=== PATIENT | female | born 1960 | race Caucasian/White ===

== ENCOUNTER 2019-11-27 18:29 | Inpatient (IN) ==
--- NOTE | 2019-11-27 21:06 | CT ---
HISTORYhepatic encephalopathy, ams[Altered mental status]Noncontrast head CT examination.Comparison: [None].Technique:Multiple axial images of the brain were obtained from the skull base to the vertex without administration of IV contrast.Findings: There is moderate sulcal and cisternal prominence as well as atherosclerotic change in the proximal intracranial carotid and vertebral arteries, which is not out of proportion to the patient's stated age. There is diffuse CT density alteration seen in the periventricular white matter of the high and mid-convexity, which is likely in the setting of small vessel disease and not out of proportion to the patient's stated age. There is no pathologic ventricular dilatation or CT imaging evidence for hydrocephalus or herniation syndrome. No midline shift is evident. No acute intraparenchymal hemorrhage or mass can be identified. No extra-axial fluid collections are seen. No alteration in the attenuation of the brain parenchyma can be identified to suggest acute or subacute ischemic change. However, if clinical symptoms are concerning for an acute CVA, then follow-up MRI with DWI sequencing is recommended. The extracranial structures are unremarkable. The sinuses and mastoids are relatively clear.IMPRESSION:1. [No acute intracranial process, mass, or bleed identified].2. [Age-appropriate intra-cranial changes of advancing age].Electronically signed by: BI AGUILAR III (Nov 27, 2019 21:05:00)
--- NOTE | 2019-11-27 21:47 | RAD ---
Chest PA and lateralIndication: COPDCOMPARISONNone availableFINDINGSThere is no pneumothorax or effusion. Heart size is prominent. Lungs are hyperinflated. No dense consolidation seen.IMPRESSIONCardiomegaly and pulmonary hyperinflation of COPD without other acute chest processElectronically signed by: MARIA DHILLON (Nov 27, 2019 21:45:33)
[2019-11-27] MEDS ORDERED: HumuLIN R SUBCUT PRN (22:08)
[2019-11-27] MEDS: LITHIUM CARBONATE (PLAIN) PO SCH (23:30)
[2019-11-27] MEDS: COLACE CAP 100 MG PO SCH (23:30)
[2019-11-27] MEDS: CYMBALTA PO SCH (23:30)
[2019-11-27] MEDS: DILANTIN CAP 100 MG EXT REL PO SCH (23:30)
[2019-11-27] MEDS: ATIVAN TAB 0.5 MG PO SCH (23:30)
[2019-11-27] MEDS: XIFAXAN PO SCH (23:30)
[2019-11-27] MEDS: CHRONULAC PO SCH (23:30)
[2019-11-28] MEDS ORDERED: SEROquel TAB 25 mg PO ONE (00:10)
[2019-11-28] MEDS: CHRONULAC PO SCH ×4 (03:30→21:26)
[2019-11-28 05:11] VITALS: BMI 36.6
[2019-11-28] MEDS: NS 1000 ML 1,000 ML IV SCH ×3 (05:45→14:10)
[2019-11-28] MEDS ORDERED: GLUCOPHAGE ONE ×2 (06:00→16:52)
[2019-11-28] MEDS ORDERED: PHARMACY CONSULT LTC MEDICATIONS XX SCH (06:00)
[2019-11-28] MEDS: ATIVAN TAB 0.5 MG PO SCH ×3 (06:13→21:31)
[2019-11-28 06:41] LABS: BILIRUBIN,URINE NEGATIVE (NEGATIVE); BLOOD/HEMOGLOBIN,URINE NEGATIVE (NEGATIVE); GLUCOSE, URINE NEGATIVE (NEGATIVE); KETONES,URINE 1+ (NEGATIVE); LEUKOCYTE ESTERASE ,URINE NEGATIVE (NEGATIVE); NITRITES,URINE NEGATIVE (NEGATIVE); PH,URINE 6.5 (5.0 - 8.0); PROTEIN,URINE NEGATIVE (NEGATIVE); UROBILINOGEN,URINE 1+ (NORMAL)
[2019-11-28 06:46] LABS: BASOPHILS % (AUTO) 0.2 % (0.2-1.0); EOSINOPHILS # (AUTO) 0.1 x10^3/uL (0.0-0.2); EOSINOPHILS % (AUTO) 1.4 % (0.9-2.9); HEMATOCRIT 36.1 % (36.0-47.0); HEMOGLOBIN 12.1 g/dL (12.0-16.0); LYMPHOCYTES # (AUTO) 2.2 X10^3/uL (1.3-2.9); LYMPHOCYTES % (AUTO) 39.6 % (21.0-51.0); MEAN CORPUSCULAR HEMOGLOBIN 29.1 pg (27.0-34.0); MEAN CORPUSCULAR HGB CONC 33.5 g/dL (33.0-35.0); MEAN CORPUSCULAR VOLUME 86.9 fL (80.0-100.0); MEAN PLATELET VOLUME 9.9 fL (7.4-11.0); MONOCYTES # (AUTO) 0.5 x10^3/uL (0.3-0.8); MONOCYTES % (AUTO) 8.8 % (0.0-13.0); NEUTROPHILS # (AUTO) 2.8 x10^3/uL (2.2-4.8); PLATELET COUNT 111 X10^3/uL (150.0-450.0); RED BLOOD COUNT 4.15 X10^6/uL (3.5-5.4); RED CELL DISTRIBUTION WIDTH 15.1 % (11.6-16.5); WHITE BLOOD COUNT 5.5 X10^3/uL (3.6-10.0)
[2019-11-28] MEDS: GLUCOPHAGE PO SCH ×2 (06:46→17:06)
[2019-11-28 07:06] LABS: ALANINE AMINOTRANSFERASE 19 Units/L (12-78); ALBUMIN 3.3 g/dL (3.4-5.0); ALKALINE PHOSPHATASE 99 Units/L (46-116); ASPARTATE AMINO TRANSFERASE 24 Units/L (15-37); BLOOD UREA NITROGEN 8 mg/dL (7-18); CALCIUM 9.3 mg/dL (8.5-10.1); CARBON DIOXIDE 27.7 mmol/L (21-32); CHLORIDE 105 mmol/L (98-107); COR CA(FOR HYPOALB) 9.9 mg/dL (8.5-10.1); COR NA(FOR HYPERGLY) 142 mmol/L (136-145); CREATININE 0.77 mg/dL (0.55-1.02); SODIUM 141 mmol/L (136-145); TOTAL PROTEIN 7.6 g/dL (6.4-8.2); eGFR NON BLACK RACES > 60 (>60)
[2019-11-28 07:10] LABS: AMMONIA 39 umol/L (11-32)
[2019-11-28 07:28] LABS: APPEARANCE,URINE CLEAR (CLEAR); BACTERIA,URINE NEGATIVE /HPF (NEGATIVE); COLOR,URINE YELLOW (YELLOW); RBC,URINE 0-2 /HPF (0-3); SQUAMOUS EPITHELIAL CELL,UR RARE /HPF (NEGATIVE)
[2019-11-28 07:38] LABS: AMYLASE 23 Units/L (25-115); LIPASE 83 Units/L (73-393)
[2019-11-28] MEDS: VITAMIN D3 25 mcg (1,000 UNITS) PO SCH (08:47)
[2019-11-28] MEDS: XIFAXAN PO SCH ×2 (08:47→21:28)
[2019-11-28] MEDS: LITHIUM CARBONATE (PLAIN) PO SCH ×2 (08:48→21:29)
[2019-11-28] MEDS: TAB-A-VITE PO SCH (08:48)
[2019-11-28] MEDS: VITAMIN C PO SCH (08:48)
[2019-11-28] MEDS: CLARITIN PO SCH (08:48)
[2019-11-28] MEDS: SEROquel TAB 25 mg PO SCH ×2 (08:48→17:06)
[2019-11-28] MEDS: FOLIC ACID TAB 1 MG PO SCH (08:48)
[2019-11-28] MEDS: PROTONIX TAB 40 MG PO SCH (08:48)
[2019-11-28] MEDS: MIRALAX POWDER (1 DOSE 17 G) PO SCH (08:49)
[2019-11-28] MEDS: COLACE CAP 100 MG PO SCH ×2 (08:49→21:30)
[2019-11-28] MEDS: CYMBALTA PO SCH ×2 (08:51→21:40)
--- NOTE | 2019-11-28 10:18 | DR.H&P ---
H&P - History & Physical for Day of: H&P Date: 11/27/19 - Chief Complaint Chief Complaint: AMS - History of Present Illness History of Present Illness: PTIS 59 WF, DIRECT ADMIT FROM [facility] [place] WITH CO PER NURSING STAFF OF [facility]. PT HAD CT HEAD ON ADMISSION WO ACUTE FINDINGS. PT DENIES ANY FEVER OR CCC. PT HAS EXTENSIVE HX OF MENTAL ILLNESS. PLAN TO ADMIT, R/O ACUTE CVA, HYDRATE - Past Medical History Past Medical History: Anxiety, Arthritis, Depression, Diabetes, GERD, Hypertension, Schizophrenia - Past Surgical History Surgical History: Unknown - Social History Does patient currently use any type of tobacco product: Yes Have you used tobacco products in the last 12 months: Yes Type of Tobacco Use: Cigarettes How many years tobacco product used: 40 Alcohol Use: None Drug Use: None - Medications Home Medications: cephalexin Allergy (Verified 11/27/19 21:48) propoxyphene Allergy (Verified 11/27/19 21:48) streptomycin Allergy (Verified 11/27/19 21:48) Sulfa (Sulfonamide Antibiotics) Allergy (Verified 11/27/19 21:48) tetracycline Allergy (Verified 11/27/19 21:48) CONTINUE taking the following medications ascorbic acid (vitamin C) [Vitamin C] 500 mg PO DAILY 11/27/19 [History] cholecalciferol (vitamin D3) 2,000 unit PO DAILY 11/27/19 [History] dextran 70-hypromellose [GenTeal Tears Mild] 2 drp OPHTHALMIC (EYE) TID 11/27/19 [History] dextromethorphan HBr [Tussin Cough (DM only)] 30 mg PO Q6H PRN 11/27/19 [History] divalproex 875 mg PO BID 11/27/19 [History] docusate sodium 100 mg PO BID 11/27/19 [History] duloxetine 60 mg PO BID 11/27/19 [History] ergocalciferol (vitamin D2) 50,000 unit PO QWEEK 11/27/19 [History] folic acid 1 mg PO DAILY 11/27/19 [History] haloperidol decanoate [Haldol Decanoate] 150 mg IM Q21D 11/27/19 [History] ibuprofen 400 mg PO TID PRN 11/27/19 [History] insulin regular human [Novolin R Regular U-100 Insuln] See Rx Instructions .ROUTE .COMPLEX 11/27/19 [History] lactulose 30 ml PO QID 11/27/19 [History] lithium carbonate 300 mg PO BID 11/27/19 [History] loratadine [Claritin] 10 mg PO DAILY 11/27/19 [History] lorazepam [Ativan] 0.5 mg PO TID 11/27/19 [History] metformin 500 mg PO BID 11/27/19 [History] montelukast 10 mg PO QHS 11/27/19 [History] gcklsikrnfcg-dzfu-cmtwe acid [Multi Complete with Iron] 1 tab PO DAILY 11/27/19 [History] pantoprazole 40 mg PO DAILY 11/27/19 [History] phenytoin sodium extended 300 mg PO HS 11/27/19 [History] polyethylene glycol 3350 17 g PO DAILY 11/27/19 [History] prazosin 2 mg PO HS 11/27/19 [History] quetiapine [Seroquel] 50 mg PO BID 11/27/19 [History] - Review of Systems Constitutional: No Symptoms Reported Eyes: No Symptoms Reported ENT: No Symptoms Reported Respiratory: No Symptoms Reported Cardiovascular: No Symptoms Reported Gastrointestinal: Nausea, Abdominal Pain ("SWOLLEN"), Diarrhea Genitourinary: No Symptoms Reported Musculoskeletal: No Symptoms Reported Skin: No Symptoms Reported Neurological: Confusion (PT HAD BOTH APPROPRIATE AND INAPPROPRIATE RESPONSES) - Physical Exam Vital Signs: Temperature 98.7 F Pulse Rate [Brachial] 88 Respiratory Rate 22 Blood Pressure [Left Arm] 132/65 O2 Sat by Pulse Oximetry 96 Oriented: Person Eyes: Normal Ear: Normal Nose: Normal Throat: Normal Respiratory: RLL Diminished, LLL Diminished Cardiovascular: Normal : Normal Auscultation: Bowel Sounds: Normal Palpation: Normal Tenderness: Diffuse, Mild Skin: Normal Musculoskeletal: Normal Psychiatric: Anxiety Mood Description: Anxious Affect: Anxious Speech Pattern: Appropriate, Inappropriate, Excessive - Assessment/Plan (1) Altered mental status Status: Acute Plan: ADMIT, CT HEAD ON ADMISSION. LABS, CBC CMP UA, AMYLASE AND LIPASE. VERIFY AND RESUME HOME MEDICATIONS. BP AND BS CONTROL. GENTLE IV HYDRATION, CXR ON ADMISSION (2) Abdominal distention Status: Acute (3) Diarrhea Status: Acute (4) Hepatic encephalopathy Status: Acute - Allergies Allergies/Adverse Reactions: Allergies Allergy/AdvReac Type Severity Reaction Status Date / Time cephalexin Allergy Verified 11/27/19 21:48 propoxyphene Allergy Verified 11/27/19 21:48 streptomycin Allergy Verified 11/27/19 21:48 Sulfa (Sulfonamide Allergy Verified 11/27/19 21:48 Antibiotics) tetracycline Allergy Verified 11/27/19 21:48
--- NOTE | 2019-11-28 10:24 | PCM.PROG ---
Progress Note - Progress Note for Day of Date of Exam: 11/28/19 - Subjective Subjective: 59 WF DIRECT ADMIT ON 11/26 WITH AMS. PT HAD CT BRAIN ON ADMISSION WITHOUT ANY ACUTE FINDINGS. PT HAD SLIGHT INCREASE IN AMMONIA, CURRENTLY ON XIFAXIN. AMYLASE AND LIPASE NORMAL. PT WAS AWAKE AND ALERT ON EXAM THIS AM WITH BOTH APPROPRIATE AND INAPPROPRIATE RESPONSES, RELATED TO MENTAL ILLNESS. PT CO ABDOMINAL PAIN THIS AM, NO REBOUND TENDERNESS OR GUARDING. PLAN TO OBTAIN ABD SERIES, REPEAT AMMONIA LEVEL, LITHIUM AND DILANTIN LEVEL - Past Medical Family Social History Past Med/Fam/Surg Hx: No changes since H&P Allergies: Allergies cephalexin Allergy (Verified 11/27/19 21:48) propoxyphene Allergy (Verified 11/27/19 21:48) streptomycin Allergy (Verified 11/27/19 21:48) Sulfa (Sulfonamide Antibiotics) Allergy (Verified 11/27/19 21:48) tetracycline Allergy (Verified 11/27/19 21:48) - Review of Systems ROS: No change since H&P - Vital Signs and I&O's Vital Signs: Temperature 98.7 F Pulse Rate [Brachial] 88 Respiratory Rate 22 Blood Pressure [Left Arm] 132/65 O2 Sat by Pulse Oximetry 96 Intake and Output: Intake & Output 11/25/19 11/26/19 11/27/19 11/28/19 11:59 11:59 11:59 11:59 Intake Total 660 / 660 Balance 660 / 660 - Physical Exam Oriented: Person Eyes: Normal Ear: Normal Nose: Normal Throat: Normal Respiratory: Diminished Cardiovascular: Normal : Normal Auscultation: Bowel Sounds: Normal Tenderness: Diffuse, Mild Skin: Normal Musculoskeletal: Normal Psychiatric: Anxiety Mood Description: Anxious Affect: Anxious Speech Pattern: Appropriate, Inappropriate, Excessive - Laboratory and Diagnostics Result Diagrams: 11/28/19 05:35 11/28/19 05:35 Labs: Laboratory WBC 5.5 X10^3/uL (3.6-10.0) 11/28/19 05:35 RBC 4.15 X10^6/uL (3.5-5.4) 11/28/19 05:35 Hgb 12.1 g/dL (12.0-16.0) 11/28/19 05:35 Hct 36.1 % (36.0-47.0) 11/28/19 05:35 MCV 86.9 fL (80.0-100.0) 11/28/19 05:35 MCH 29.1 pg (27.0-34.0) 11/28/19 05:35 MCHC 33.5 g/dL (33.0-35.0) 11/28/19 05:35 RDW 15.1 % (11.6-16.5) 11/28/19 05:35 Plt Count 111 X10^3/uL (150.0-450.0) L 11/28/19 05:35 MPV 9.9 fL (7.4-11.0) 11/28/19 05:35 Neut % (Auto) 50.0 % (42.0-75.0) 11/28/19 05:35 Lymph % (Auto) 39.6 % (21.0-51.0) 11/28/19 05:35 [place] % (Auto) 8.8 % (0.0-13.0) 11/28/19 05:35 Eos % (Auto) 1.4 % (0.9-2.9) 11/28/19 05:35 Baso % (Auto) 0.2 % (0.2-1.0) 11/28/19 05:35 Neut # (Auto) 2.8 x10^3/uL (2.2-4.8) 11/28/19 05:35 Lymph # (Auto) 2.2 X10^3/uL (1.3-2.9) 11/28/19 05:35 [place] # (Auto) 0.5 x10^3/uL (0.3-0.8) 11/28/19 05:35 Eos # (Auto) 0.1 x10^3/uL (0.0-0.2) 11/28/19 05:35 Baso # (Auto) 0.0 X10^3/uL (0.0-0.1) 11/28/19 05:35 Absolute Nucleated RBC 0.3 /100WBC 11/28/19 05:35 Sodium 141 mmol/L (136-145) 11/28/19 05:35 Corrected Sodium 142 mmol/L (136-145) 11/28/19 05:35 Potassium 3.6 mmol/L (3.5-5.1) 11/28/19 05:35 Chloride 105 mmol/L (98-107) 11/28/19 05:35 Carbon Dioxide 27.7 mmol/L (21-32) 11/28/19 05:35 BUN 8 mg/dL (7-18) 11/28/19 05:35 Creatinine 0.77 mg/dL (0.55-1.02) 11/28/19 05:35 Est GFR (MDRD) Af Amer > 60 (>60) 11/28/19 05:35 Est GFR (MDRD) Non-Af > 60 (>60) 11/28/19 05:35 Glucose 125 mg/dL (65-99) H 11/28/19 05:35 POC Glucose (mg/dL) 131 mg/dL (65-99) H 11/28/19 05:05 Calcium 9.3 mg/dL (8.5-10.1) 11/28/19 05:35 Corrected Calcium 9.9 mg/dL (8.5-10.1) 11/28/19 05:35 Total Bilirubin 0.40 mg/dL (0.2-1.0) 11/28/19 05:35 AST 24 Units/L (15-37) 11/28/19 05:35 ALT 19 Units/L (12-78) 11/28/19 05:35 Alkaline Phosphatase 99 Units/L (46-116) 11/28/19 05:35 Ammonia 39 umol/L (11-32) H 11/28/19 05:35 Total Protein 7.6 g/dL (6.4-8.2) 11/28/19 05:35 Albumin 3.3 g/dL (3.4-5.0) L 11/28/19 05:35 Globulin 4.3 g/dL (2.5-4.5) 11/28/19 05:35 Albumin/Globulin Ratio 0.8 Ratio (1.1-2.1) L 11/28/19 05:35 Amylase 23 Units/L (25-115) L 11/28/19 05:35 Lipase 83 Units/L (73-393) 11/28/19 05:35 Specimen Type Catherized urine 11/28/19 05:25 Urine Color Yellow (YELLOW) 11/28/19 05:25 Urine Appearance Clear (CLEAR) 11/28/19 05:25 Urine pH 6.5 (5.0 - 8.0) 11/28/19 05:25 Ur Specific [place] 1.010 (1.000-1.030) 11/28/19 05:25 Urine Protein Negative (NEGATIVE) 11/28/19 05:25 Urine Glucose (UA) Negative (NEGATIVE) 11/28/19 05:25 Urine Ketones 1+ (NEGATIVE) 11/28/19 05:25 Urine Occult Blood Negative (NEGATIVE) 11/28/19 05:25 Urine Nitrite Negative (NEGATIVE) 11/28/19 05:25 Urine Bilirubin Negative (NEGATIVE) 11/28/19 05:25 Urine Urobilinogen 1+ (NORMAL) 11/28/19 05:25 Ur Leukocyte Esterase Negative (NEGATIVE) 11/28/19 05:25 Urine RBC 0-2 /HPF (0-3) 11/28/19 05:25 Urine WBC None seen /HPF (0-5) 11/28/19 05:25 Ur Squamous Epith Cells Rare /HPF (NEGATIVE) 11/28/19 05:25 Urine Bacteria Negative /HPF (NEGATIVE) 11/28/19 05:25 Ur Culture Indicated? No/not indicated 11/28/19 05:25 - Plan (1) Altered mental status Status: Acute Plan: CT HEAD ON ADMISSION. LABS, CBC CMP UA, AMYLASE AND LIPASE, REPEAT AM AMMONIA. VERIFY AND RESUME HOME MEDICATIONS. BP AND BS CONTROL. GENTLE IV HYDRATION, CXR ON ADMISSION (2) Abdominal distention Status: Acute (3) Diarrhea Status: Acute (4) Hepatic encephalopathy Status: Acute
[2019-11-28] MEDS ORDERED: K-DUR TAB 20 MEQ PO PRN (11:25)
[2019-11-28] MEDS ORDERED: POTASSIUM CHL 60 MEQ/NS 0.45% 500 ML IV PRN (11:25)
[2019-11-28] MEDS ORDERED: K-RIDER 10 MEQ/NS 100 ML 10 MEQ/100 ML BAG IV PRN (11:25)
[2019-11-28] MEDS ORDERED: MICRO K EXTEN CAP 10 MEQ PO PRN (11:25)
[2019-11-28] MEDS ORDERED: KLOR-CON PO PRN (11:25)
[2019-11-28] MEDS ORDERED: POTASSIUM CHL 40 MEQ/NS 0.45% 500 ML IV PRN (11:25)
[2019-11-28] MEDS ORDERED: POTASSIUM CHLORIDE LIQ 20 MEQ UDC PO PRN (11:25)
[2019-11-28] MEDS: PATIENT'S HOME MEDICATION PO SCH ×3 (13:18→21:32)
--- NOTE | 2019-11-28 15:18 | RAD ---
HISTORYABDOMINAL DISTENTION, ABDOMINAL PAIN Relevant Clinical InformationSTUDYACUTE ABDOMEN SERIESCOMPARISONNone.FINDINGSThe trachea is midline. The cardiac silhouette is [enlarged without overt signs of failure]. Chronic emphysematous changes. [The lungs are clear without focal mass or consolidation. There is no effusion or pneumothorax.] [The bony thorax is unremarkable].Flat plate and upright evaluation of the abdomen demonstrates multiple mildly dilated loops of large bowel with air and large amounts of stool to the level of the rectum. There is no pneumoperitoneum. No pathological soft tissue mass or calcification can be observed. The bony structures are grossly intact.IMPRESSION1. [No acute cardiopulmonary disease.]2. [Mildly dilated loops of large bowel which may represent ileus versus partial bowel obstruction.]Electronically signed by: GILBERTO STOKES (Nov 28, 2019 15:17:05)
[2019-11-28] MEDS ORDERED: BENADRYL INJ 50 MG VIAL IVP ONE (19:12)
[2019-11-28] MEDS: SNACK - Diabetic Appropriate PO SCH (20:30)
[2019-11-28] MEDS: SINGULAIR TAB 10 MG PO SCH (21:31)
[2019-11-28] MEDS: DILANTIN CAP 100 MG EXT REL PO SCH (21:31)
[2019-11-29] MEDS: NS 1000 ML 1,000 ML IV SCH (00:47)
[2019-11-29] MEDS: CHRONULAC PO SCH ×4 (04:00→20:49)
[2019-11-29] MEDS ORDERED: GLUCOPHAGE ONE ×2 (05:23→18:03)
[2019-11-29] MEDS: ATIVAN TAB 0.5 MG PO SCH ×3 (06:19→21:44)
[2019-11-29] MEDS: GLUCOPHAGE PO SCH ×2 (06:19→18:07)
[2019-11-29 06:27] LABS: BASOPHILS % (AUTO) 0.3 % (0.2-1.0); EOSINOPHILS # (AUTO) 0.1 x10^3/uL (0.0-0.2); EOSINOPHILS % (AUTO) 1.5 % (0.9-2.9); HEMATOCRIT 36.1 % (36.0-47.0); HEMOGLOBIN 11.9 g/dL (12.0-16.0); LYMPHOCYTES # (AUTO) 1.8 X10^3/uL (1.3-2.9); LYMPHOCYTES % (AUTO) 35.7 % (21.0-51.0); MEAN CORPUSCULAR HEMOGLOBIN 28.8 pg (27.0-34.0); MEAN CORPUSCULAR HGB CONC 33.1 g/dL (33.0-35.0); MEAN PLATELET VOLUME 9.4 fL (7.4-11.0); MONOCYTES # (AUTO) 0.4 x10^3/uL (0.3-0.8); NEUTROPHILS # (AUTO) 2.8 x10^3/uL (2.2-4.8); NEUTROPHILS % (AUTO) 55.5 % (42.0-75.0); PLATELET COUNT 112 X10^3/uL (150.0-450.0); RED BLOOD COUNT 4.15 X10^6/uL (3.5-5.4); RED CELL DISTRIBUTION WIDTH 14.8 % (11.6-16.5); WHITE BLOOD COUNT 5.1 X10^3/uL (3.6-10.0)
[2019-11-29 06:39] LABS: AMMONIA 32 umol/L (11-32)
[2019-11-29 06:40] LABS: ALANINE AMINOTRANSFERASE 22 Units/L (12-78); ALBUMIN 3.2 g/dL (3.4-5.0); ALKALINE PHOSPHATASE 100 Units/L (46-116); ASPARTATE AMINO TRANSFERASE 29 Units/L (15-37); BLOOD UREA NITROGEN 6 mg/dL (7-18); CALCIUM 8.8 mg/dL (8.5-10.1); CHLORIDE 105 mmol/L (98-107); COR CA(FOR HYPOALB) 9.4 mg/dL (8.5-10.1); COR NA(FOR HYPERGLY) 142 mmol/L (136-145); CREATININE 0.86 mg/dL (0.55-1.02); SODIUM 140 mmol/L (136-145); TOTAL PROTEIN 7.5 g/dL (6.4-8.2); eGFR NON BLACK RACES > 60 (>60)
[2019-11-29] MEDS: VITAMIN D3 25 mcg (1,000 UNITS) PO SCH (09:32)
[2019-11-29] MEDS: CYMBALTA PO SCH ×2 (09:32→20:51)
[2019-11-29] MEDS: LITHIUM CARBONATE (PLAIN) PO SCH ×2 (09:32→20:50)
[2019-11-29] MEDS: COLACE CAP 100 MG PO SCH ×2 (09:32→20:51)
[2019-11-29] MEDS: PROTONIX TAB 40 MG PO SCH (09:32)
[2019-11-29] MEDS: XIFAXAN PO SCH ×2 (09:32→20:50)
[2019-11-29] MEDS: CLARITIN PO SCH (09:33)
[2019-11-29] MEDS: VITAMIN C PO SCH (09:33)
[2019-11-29] MEDS: FOLIC ACID TAB 1 MG PO SCH (09:33)
[2019-11-29] MEDS: SEROquel TAB 25 mg PO SCH ×2 (09:33→18:07)
[2019-11-29] MEDS: TAB-A-VITE PO SCH (09:33)
[2019-11-29] MEDS: MIRALAX POWDER (1 DOSE 17 G) PO SCH (09:34)
[2019-11-29] MEDS: PATIENT'S HOME MEDICATION PO SCH ×3 (09:34→21:12)
[2019-11-29] MEDS: LOVENOX INJ 40 MG SYR SC SCH (14:10)
--- NOTE | 2019-11-29 17:10 | RAD ---
HISTORYABD DISTENTION/ HX OF ILEUS Relevant Clinical InformationSTUDYKUBCOMPARISONApril 1999FINDINGSEvaluation of the abdomen demonstrates a stable bowel gas pattern. No pathological soft tissue mass or calcification can be observed. The bony structures are grossly intact.IMPRESSIONStable bowel gas pattern unchanged from priorElectronically signed by: SU LOBO (Nov 29, 2019 17:08:44)
[2019-11-29] MEDS: SINGULAIR TAB 10 MG PO SCH (20:50)
[2019-11-29] MEDS: DILANTIN CAP 100 MG EXT REL PO SCH (20:51)
[2019-11-29] MEDS: SNACK - Diabetic Appropriate PO SCH (20:52)
[2019-11-30] MEDS: CHRONULAC PO SCH (02:48)
[2019-11-30] MEDS: NS 1000 ML 1,000 ML IV SCH (03:46)
[2019-11-30] MEDS: MOTRIN TAB 400 MG PO PRN ×2 (04:00→15:40)
[2019-11-30] MEDS ORDERED: GLUCOPHAGE ONE ×2 (05:36→15:53)
[2019-11-30] MEDS: ATIVAN TAB 0.5 MG PO SCH ×2 (05:45→15:40)
[2019-11-30] MEDS: GLUCOPHAGE PO SCH ×2 (06:08→16:00)
[2019-11-30] MEDS ORDERED: CHRONULAC PO SCH (09:00)
[2019-11-30] MEDS: MIRALAX POWDER (1 DOSE 17 G) PO SCH (09:18)
[2019-11-30] MEDS: LOVENOX INJ 40 MG SYR SC SCH (09:18)
[2019-11-30] MEDS: TAB-A-VITE PO SCH (09:19)
[2019-11-30] MEDS: CLARITIN PO SCH (09:19)
[2019-11-30] MEDS: PATIENT'S HOME MEDICATION PO SCH (09:20)
[2019-11-30] MEDS: VITAMIN C PO SCH (09:20)
[2019-11-30] MEDS: SEROquel TAB 25 mg PO SCH (09:20)
[2019-11-30] MEDS: LITHIUM CARBONATE (PLAIN) PO SCH (09:21)
[2019-11-30] MEDS: XIFAXAN PO SCH (09:21)
[2019-11-30] MEDS: CYMBALTA PO SCH (09:21)
[2019-11-30] MEDS: COLACE CAP 100 MG PO SCH (09:21)
[2019-11-30] MEDS: VITAMIN D3 25 mcg (1,000 UNITS) PO SCH (09:22)
[2019-11-30] MEDS: PROTONIX TAB 40 MG PO SCH (09:22)
[2019-11-30] MEDS: FOLIC ACID TAB 1 MG PO SCH (09:22)
--- NOTE | 2019-11-30 15:02 | CT ---
HISTORYCOPDSTUDYCT OF THE CHEST WITH CONTRASTCOMPARISONCHEST X-RAY NOVEMBER 27, 2019TECHNIQUEAxial CT was performed from the thoracic inlet to the upper abdomen with IV contrast. The axial sequences are reconstructed with multiplaner reformats.FINDINGSThe quality of the exam is mildly degraded as result of patient induced motion artifact. Contrast is performed in the early arterial phase primarily outlining the main pulmonary artery with no central main pulmonary artery filling defects observed. Contrast is also localized to the right heart chambers.Centrilobular emphysematous changes are evident. There is linear bilateral pleural parenchymal scarring associated with the lung apices, lingula, right middle lobe and left lower lobe. In the left lower lobe on image 38, contiguous with parenchymal scarring, is an imbedded pulmonary nodule which measures approximately 11 mm by 9 mm.No consolidating pulmonary infiltrates are identified. The pleural spaces remain clear. There are no pathologically enlarged central mediastinal, hilar, or axillary lymph nodes. Calcifications along the LAD and circumflex coronary artery distribution are consistent with atherosclerotic changes. Thoracic aorta caliber is average.The partially included upper abdomen demonstrates evidence of cirrhotic liver morphology and splenomegaly related to portal venous hypertension. Please refer to separate CT abdomen and pelvis report for complete details of the separately acquired imaging procedure.Evaluation of the osseous structures reveals no aggressive lytic or blastic bony lesions. No acute osseous abnormalities are demonstrated.IMPRESSIONModerate centrilobular emphysema with multi lobar pleural parenchymal scarringAssociated with scarring in the left lower lobe is an imbedded pulmonary nodule measuring 11 x 9 mm with slightly irregular borders.Recommend correlation with prior exams if available to confirm stability. Otherwise, consider CT at 3 months, PET CT for characterization or tissue sampling.Other chronic and incidental findings as discussed above.Radiation dose reduction was achieved through individualized adjustment of kVP and/or mA, through adaptive statistical iterative reconstruction, and/or through automated tube current modulation.Electronically signed by: DEIRDRE RONQUILLO (Nov 30, 2019 14:53:31)
--- NOTE | 2019-11-30 15:49 | CT ---
[id number] female with possible ascitesSTUDYABDOMEN/PELVIS WITH CONCOMPARISONChest CT performed on the same dateTECHNIQUEAxial imaging was performed through the abdomen and pelvis following administration of intravenous contrast. Sagittal and coronal reformations were generated. Automated exposure control techniques were used with this exam.FINDINGSVisualized lung bases demonstrate mild degree of atelectasis or scarring on the left.The liver has a heterogeneous appearance with lobulated margins, consistent with underlying cirrhosis. However no focal intrahepatic abnormality is seen. The spleen is enlarged, measuring 18 centimeters in length.The pancreas is normal appearing. The gallbladder is contracted and without evidence of radiopaque stones. No biliary ductal dilatation is seen. Small varices are suspected in the region of the splenic hilum as well as along the perigastric region. Both kidneys are normal appearing with no hydronephrosis, radiopaque calculi, or renal mass on either side. Large and small bowel demonstrate no evidence of obstruction or inflammatory change. No pericecal inflammation. Mild degree of nonspecific mesenteric edema is present in the mid and lower abdomen. These findings can be seen in cirrhotic patients. Vascular calcification is noted involving the abdominal aorta and iliac arteries. Uterus is present. No adnexal mass is seen on either side.No intra-abdominal or pelvic ascites is identified on this exam. A small fat filled umbilical hernia is an incidental finding. On the bone windows, no specific abnormality is seen.IMPRESSION1. Liver has a cirrhotic appearance as described above. Splenomegaly is noted as well.2. Mild degree of nonspecific mesenteric edema is present in the mid and lower abdomen. These findings can be seen in patients with cirrhosis.3. No ascites is identified in the abdomen or pelvis.Electronically signed by: TIFFANY NATH (Nov 30, 2019 15:47:29)
[2019-11-30 16:37] VITALS: BP 142/87
== END 2019-11-30 17:30 | DRG 442 ==
LOC: MED/SURG 19:12
PROVIDERS: ADMIT Internal Medicine; ATTEND Internal Medicine
DX: R41.82 Altered mental status, unspecified; R19.7 Diarrhea, unspecified; Z87.898 Personal history of other specified conditions; K72.00 Acute and subacute hepatic failure without coma; I10 Essential (primary) hypertension; K74.60 Unspecified cirrhosis of liver; F20.89 Other schizophrenia; R91.1 Solitary pulmonary nodule; R14.0 Abdominal distension (gaseous)